=== PATIENT | female | born 1970 | race Caucasian/White ===

== ENCOUNTER 2018-01-04 23:28 | Emergency (ER) | payer MEDICAID ==
--- NOTE | 2018-01-05 00:26 | ED Physician Chart ---
ED Chief Complaint/HPI - Patient Information Date Seen:: 01/05/18 Time Seen:: 00:21 Chief Complaint:: Headache History of Present Illness:: 47 yo female had headache for 2 days, constant, 10/10, sleepy. Nausea, no vomiting. Patient also had low back pain due to injury to the low back 1 month ago. Patient received local steroid injection 4 days ago. Allergies:: Allergies Allergy/AdvReac Type Severity Reaction Status Date / Time No Known Allergies Allergy Verified 01/04/18 23:52 Vitals:: Vital Signs - 8 hr 01/04/18 23:37 Temp 98.4 F HR 84 RR 19 O2 Sat % 97 ED Review of Systems - Review of Systems General/Constitutional: No fever Skin: No bruising Head: Headache Eyes: No pain ENT: No nasal drainage Neck: Neck pain Cardio Vascular: No chest pain Pulmonary: No SOB GI: No nausea, No vomiting Musculoskeletal: Back pain Psychiatric: No prior psych history Neurological: No focal symptoms ED Past Medical History - Past Medical History Past Medical History: No significant medical hx Social History: Non Smoker, No Alcohol, No Drug Use Surgical History: Cholecystectomy, (x 2) Family Medical History - Family Member Mother History Unknown: Yes ED Physical Exam - Physical Examination General/Constitutional: Awake Other Head comments:: Tenderness at bilateral greater occipital nerves Eyes: PERRL Skin: No ecchymosis ENMT: Nasal exam nl Neck: No nuchal rigidity Respiratory: No Wheeze/Rhonchi/Rales Cardio Vascular: RRR, No murmur, gallop, rubs, NL S1 S2 GI: No tenderness/rebounding/guarding Extremities: normal strength in all extremities Neuro/Psych: No focal deficits ED Assessment - Assessment General Assessment: Bilateral greater occipital neuralgia Assessment/Comments:: Toradol 30mg IM x 1 Cyclobenzaprine 10mg PO x 1 D/c home Cyclobenzaprine 5mg tid prn F/u PCP or return to ER if symptoms worsen ED Septic Shock - . Is Septic Shock (SBP<90, OR Lactate>4 mmol\L) present?: No - <6hrs of presentation: Vital Signs: Vital Signs - 8 hr 01/04/18 23:37 Temp 98.4 F HR 84 RR 19 O2 Sat % 97 ED Reassessment (Disposition) - Reassessment Reassessment Condition:: Improved - Patient Disposition Discharge/Transfer:: Home ED Discharge Plan - Patient Disposition Admit/Discharge/Transfer: PT DISCHARGED HOME Instructions: Occipital Neuralgia Additional Instructions: follow up with your primary medical doctor sandra take prescribed medications as ordered
== END 2018-01-05 01:10 | disposition home or self-care (01) ==
LOC: ER 23:28
DX: M54.81 Occipital neuralgia (principal); Z90.49 Acquired absence of other specified parts of digestive tract
CPT/HCPCS: 99283; 96372; J1885; Z7502; Z7610

== ENCOUNTER 2019-01-16 21:30 | Emergency (ER) | payer MEDICAID, OTHER ==
--- NOTE | 2019-01-16 21:46 | ED Physician Chart ---
ED Chief Complaint/HPI - Patient Information Date Seen:: 01/16/19 Time Seen:: 21:42 Chief Complaint:: leg pains swelling History of Present Illness:: 48 yr old male with leg pains justin on left Allergies:: Allergies Allergy/AdvReac Type Severity Reaction Status Date / Time No Known Allergies Allergy Verified 01/04/18 23:52 ED Review of Systems - Review of Systems General/Constitutional: No fever, No chills, No weight loss, No weakness, No diaphoresis, No edema, No loss of appetite Skin: No skin lesions, No rash, No bruising Head: No headache, No light-headedness Eyes: No loss of vision, No pain, No diplopia ENT: No earache, No nasal drainage, No sore throat, No tinnitus Neck: No neck pain, No swelling, No thyromegaly, No stiffness, No mass noted Cardio Vascular: No chest pain, No palpitations, No PND, No orthopnea, No edema Pulmonary: No SOB, No cough, No sputum, No wheezing GI: No nausea, No vomiting, No diarrhea, No pain, No melena, No hematochezia, No constipation, No hematemesis G/U: No dysuria, No frequency, No hematuria Musculoskeletal: No bone or joint pain, No back pain, No muscle pain Endocrine: No polyuria, No polydipsia Psychiatric: No prior psych history, No depression, No anxiety, No suicidal ideation Hematopoietic: No bruising, No lymphadenopathy Allergic/Immuno: No urticaria, No angioedema Neurological: No syncope, No focal symptoms, No weakness, No paresthesia, No headache, No seizure, No dizziness, No confusion, No vertigo ED Past Medical History - Past Medical History Past Medical History: CAD, CVA/TIA Family History: None Social History: Non Smoker Family Medical History - Family Member Mother History Unknown: Yes ED Physical Exam - Physical Examination General/Constitutional: Awake, Well-developed, well-nourished, Alert, No distress, GCS 15, Non-toxic appearing, Ambulatory Head: Atraumatic Eyes: Lids, conjuctiva normal, PERRL, EOMI Skin: Nl inspection, No rash, No skin lesions, No ecchymosis, Well hydrated, No lymphadenopathy ENMT: External ears, nose nl, Nasal exam nl, Lips, teeth, gums nl Neck: Nontender, Full ROM w/o pain, No JVD, No nuchal rigidity, No bruit, No mass, No stridor Respiratory: Nl effort/Exclusion, Clear to Auscultation, No Wheeze/Rhonchi/Rales Cardio Vascular: RRR, No murmur, gallop, rubs, NL S1 S2 GI: No tenderness/rebounding/guarding, No organomegaly, No hernia, Normal BS's, Nondistended, No mass/bruits, No McBurney tenderness : No CVA tenderness Extremities: No tenderness or effusion, Full ROM, normal strength in all extremities, No edema, Normal digits & nails Neuro/Psych: Alert/oriented, DTR's symmetric, Normal sensory exam, Normal motor strength, Judgement/insight normal, Mood normal, Normal gait, No focal deficits Misc: Normal back, No paraspinal tenderness ED Labs/Radiology/EKG Results - Radiology Results Results: us neg venous doppler ED Assessment - Assessment General Assessment: leg pains ED Septic Shock - . Is Septic Shock (SBP<90, OR Lactate>4 mmol\L) present?: No ED Reassessment (Disposition) - Reassessment Reassessment:: leg pain lt side no dvt - Diagnosis Diagnosis:: leg pain neg dvt - Aftercare/Follow up Instructions Aftercare/Follow-Up Instructions:: Counseled pt regarding lab results/diagnosis & need follow up - Patient Disposition Discharge/Transfer:: Home Condition at Disposition:: Stable
[2019-01-16 22:10] LABS: % EOSINOPHILS 4.4 % (0.0-5.0); % LYMPHOCYTES 27.6 % (20.0-50.0); % MONOCYTES 7.4 % (2.0-10.0); % NEUTROPHILS 59.6 % (40.0-80.0); BASOPHILE ABSOLUTE 0.1 Th/cumm (0-0.2); EOSINOPHILE ABSOLUTE 0.3 Th/cmm (0.1-0.4); HEMATOCRIT 42.1 % (41.0-60); HEMOGLOBIN 14.3 gm/dL (12-16); LYMPHOCYTE ABSOLUTE 1.7 Th/cmm (1.5-3.0); MEAN CELL VOLUME 90.1 fl (81-100); MEAN CORPUSCULAR HEMOGLOBIN 30.7 pg (27.0-31.0); MEAN CORPUSCULAR HGB CONC 34.1 pg (28.0-36.0); MEAN PLATELET VOLUME 7.3 fl; MONOCYTE ABSOLUTE 0.5 Th/cmm (0.3-1.0); NEUTROPHILE ABSOLUTE 3.6 Th/cmm (1.8-8.0); PLATELET COUNT 277 Th/cmm (150-400); RED BLOOD COUNT 4.67 Mil/cmm (3.80-5.10); RED CELL DISTRIBUTION WIDTH 14.3 % (11.5-20.0); WHITE BLOOD COUNT 6.2 Th/cmm (4.8-10.8)
[2019-01-16 22:10] LABS: URINE SOURCE CLEAN C
[2019-01-16 22:11] LABS: URINE BILIRUBIN NEGATIVE (NEGATIVE); URINE BLOOD SMALL (NEGATIVE); URINE GLUCOSE (UA) NEGATIVE (NEGATIVE); URINE KETONE NEGATIVE (NEGATIVE); URINE LEUKOCYTE ESTERASE NEGATIVE (NEGATIVE); URINE MICROSCOPIC INDICATED? YES; URINE NITRATE NEGATIVE (NEGATIVE); URINE PROTEIN NEGATIVE (NEGATIVE); URINE UROBILINOGEN 0.2 E.U./dL (0.2 - 1.0)
[2019-01-16 22:21] LABS: URINE COLOR STRAW
[2019-01-16 22:22] LABS: URINE CLARITY HAZY (CLEAR)
[2019-01-16 22:34] LABS: ALBUMIN 3.9 gm/dL (3.7-5.3); ALKALINE PHOSPHATASE 94 U/L (34-104); ANION GAP 11.5 (7.0-16.0); BILIRUBIN,TOTAL 0.4 mg/dL (0.3-1.0); BUN - UREA NITROGEN 14 mg/dL (7-25); CHLORIDE 102 mEq/L (98-107); CREATININE - SERUM 0.7 mg/dL (0.6-1.2); GFR AFRICAN-AMERICAN > 60.0 ml/min (>90); GFR NON AFRICAN-AMERICAN > 60.0 ml/min; GLUCOSE 107 mg/dL (70-105); POTASSIUM SERUM 3.5 mEq/L (3.5-5.1); SGOT 50 U/L (13-39); SGPT/ALT 67 U/L (7-52); SODIUM SERUM 137 mEq/L (136-145); TOTAL PROTEIN,SERUM 7.7 gm/dL (6.0-8.3)
[2019-01-16 22:54] LABS: URINE EPITHELIAL CELLS FEW /lpf (FEW); URINE RBC 0-2 /hpf (0-5)
[2019-01-16 22:55] LABS: URINE BACTERIA OCCASIONAL /hpf (NONE SEEN)
--- NOTE | 2019-01-16 23:52 | ER Physician Documentation ---
DATE OF SERVICE: HISTORY OF PRESENT ILLNESS: The patient is a 48-year-old female with leg pains especially on the left with swelling, history of heart problems, and coronary artery disease. 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 She has a history of varicose veins and swelling, but no history of DVTs or PEs. She denies any chest pain or shortness of breath. No fever or cough or dizziness. REVIEW OF SYSTEMS: All systems were reviewed and were otherwise negative other than mentioned in the HPI. PAST MEDICAL HISTORY: Coronary artery disease and TIA. FAMILY HISTORY: Negative. SOCIAL HISTORY: Denies. PHYSICAL EXAMINATION: GENERAL: The patient is awake, alert. HEENT: Pupils equal, reactive to light. NECK: Supple. CARDIAC: Regular rate and rhythm. LUNGS: Clear. ABDOMEN: Soft. EXTREMITIES: Negative Homans'. No calf tenderness. Some slight swelling and arthritic changes of the knees. Her legs are pretty on the obese side. The patient was worked up with laboratory data and venous duplex of both extremities was performed and no evidence of acute DVT was found. The ultrasound was negative for any clots. The patient was reassured and was to be discharged back to home. [facility]# [id number]
--- NOTE | 2019-01-17 08:20 | Diagnostic Imaging Report ---
Bilateral lower extremity Doppler venous ultrasound exam HISTORY: Pain/swelling Sonographic sector images were obtained through the deep venous systems of both legs. Associated Doppler data was obtained. The exam demonstrates patency of the common femoral, superficial femoral, popliteal, and posterior tibial veins bilaterally. Specifically, no thrombus is seen. There are normal compressibility and augmentation responses. Incidentally noted are slightly prominent rounded densities in the right groin region consistent with mildly enlarged lymph nodes. Significance should be correlated clinically. IMPRESSION: 1. Negative exam for deep vein thrombophlebitis. 2. Findings consistent with prominent lymph nodes within the right groin region. Significance should be correlated clinically.
== END 2019-01-16 23:00 | disposition home or self-care (01) ==
LOC: ER 21:30
DX: M79.662 Pain in left lower leg (principal); M79.661 Pain in right lower leg; M79.89 Other specified soft tissue disorders; I25.10 Atherosclerotic heart disease of native coronary artery without angina pectoris; Z86.73 Personal history of transient ischemic attack (TIA), and cerebral infarction without residual deficits
CPT/HCPCS: 36415-UA; 80053-TC; 81001-TC; 85025-TC; 93970-TC-50